=== PATIENT | female | born 1990 | race Caucasian/White ===

== ENCOUNTER 2024-01-03 08:13 | Emergency (ER) | payer MEDICAID, SELFPAY ==
--- NOTE | ~2024-01-03 | XR_ITS ---
Clinical Indication: Cough, shortness of breath PA and lateral views of the chest: Comparison: None Findings: The lungs are clear, without evidence of focal consolidation or pleural effusion. Cardiome diastinal silhouette is within normal limits. Bones and soft tissues are unremarkable. Impression: Normal chest. Reviewed, dictated and finalized at [facility]. 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
[2024-01-03 08:16] VITALS: BP 122/80; PULSE 84; RESP 20; TEMP 37.1; O2SAT 97
--- NOTE | 2024-01-03 08:17 | ED.GENADULT ---
HPI - General Adult General Chief complaint: Unspecified Stated complaint: cough Time Seen by Provider: 01/03/24 08:15 History of Present Illness HPI narrative: Patient is a 33-year-old female with no past medical history here today with flu-like symptoms over the last 5 days. She states she initially had a productive cough as well as sinus congestion. She has now progressed to a dry cough and poor appetite as well as sinus congestion and drainage. She has an associated headache. She believes that symptoms have been worsening over the last 5 days. She has taken occasional Tylenol and ibuprofen at home for the symptoms. She notes that her daughter is sick with similar symptoms, had a visit to an urgent care, was diagnosed with an ear infection and started on antibiotics. She notes some associated chest discomfort with coughing which radiates into her upper back. No associated urinary symptoms. Related Data Allergies Allergy/AdvReac Type Severity Reaction Status Date / Time Penicillins Allergy Unknown Hives Unverified 01/03/24 08:22 Review of Systems Review of Systems: All systems reviewed & are unremarkable except as noted in HPI and below Exam Narrative: GENERAL: Well-appearing, well-nourished, and in no acute distress. HEAD: Normocephalic, atraumatic. EYES: PERRLA and EOMI. ENT: Nares clear. Mucous membranes moist. Sinus congestion. NECK: Supple. CHEST: Clear to auscultation. No wheeze. no respiratory distress. HEART: Regular rate and rhythm. Normal peripheral pulses. ABDOMEN: Soft, nontender, nondistended. EXTREMITIES: Normal range of motion. No edema. SKIN: Warm, dry, no rash. NEURO: No focal deficits. Alert and oriented x3. PSYCH: Normal mood and affect. Course Course Emergency Course: Chart review performed, patient here with cough, back pain, nausea, blurred vision, sinus pressure, night sweats. Triage vitals within normal limits. No prior visits in our system. Patient seen evaluated, nontoxic appearing. She does note that she has had a cough with some chest wall discomfort with coughing. This feels similar to her prior episodes of pneumonia. She has tested positive for RSV here in the department, suspect most of her symptoms are due to RSV. Will do chest x-ray to rule out associated superimposed pneumonia. Patient agreeable. Chest x-ray negative. Patient advised symptomatic treatment with decongestants, Tylenol, ibuprofen. She should follow up closely with her primary care doctor. The results of pertinent diagnostic studies and exam findings were discussed. The patient?s provisional diagnosis and plan of care were discussed with the patient and present family. The patient and/or present family expressed understanding of the diagnosis and plan. The nurse was instructed to provide written instructions and appropriate follow-up information. The patient understands their need and responsibility to obtain additional follow-up as instructed. The risks of medications administered and prescribed were discussed with the patient and family present. Vital Signs Vital signs: Vital Signs Temperature 98.8 F 01/03/24 08:16 Pulse Rate 84 01/03/24 08:16 Respiratory Rate 20 01/03/24 08:16 Blood Pressure 122/80 01/03/24 08:16 Pulse Oximetry 97 01/03/24 08:16 Oxygen Delivery Room Air 01/03/24 08:16 Temperature 98.8 F 01/03/24 08:16 Pulse Rate 84 01/03/24 08:16 Respiratory Rate 19 01/03/24 08:24 Blood Pressure 122/80 01/03/24 08:16 Pulse Oximetry 97 01/03/24 08:24 Oxygen Delivery Room Air 01/03/24 08:16 Medical Decision Making Vital Signs Vital Signs: Vital Signs Temperature 98.8 F 01/03/24 08:16 Pulse Rate 84 01/03/24 08:16 Respiratory Rate 20 01/03/24 08:16 Blood Pressure 122/80 01/03/24 08:16 Pulse Oximetry 97 01/03/24 08:16 Oxygen Delivery Room Air 01/03/24 08:16 Temperature 98.8 F 01/03/24 08:16 Pulse Rate 84 01/03/24 08:16
[2024-01-03 08:24] VITALS: RESP 19; O2SAT 97
[2024-01-03 09:11] LABS: Influenza A QL RT-PCR Negative (Negative); Influenza B QL RT-PCR Negative (Negative); RSV RNA, RT-PCR Positive (Negative); SARS-CoV-2 RNA PCR Negative (Negative)
== END 2024-01-03 10:28 | disposition home or self-care (01) ==
PROVIDERS: Emergency Provider Student in an Organized Health Care Education/Training Program; PCP Family Medicine
DX: J21.0 Acute bronchiolitis due to respiratory syncytial virus (principal); Z20.822 Contact with and (suspected) exposure to COVID-19
CPT/HCPCS: 71046; 87637; 99283

== ENCOUNTER 2024-08-16 09:04 | Emergency (ER) | payer BC, SELFPAY ==
[2024-08-16 09:30] VITALS: BP 122/87; PULSE 79; RESP 16; TEMP 36.6; O2SAT 100
--- NOTE | 2024-08-16 09:42 | ED.URI ---
HPI - URI/Sore Throat General Chief Complaint: Upper Respiratory Infection Stated Complaint: Body Aches, Nausea Time Seen by Provider: 08/16/24 09:42 Source: patient, RN notes reviewed and old records reviewed Mode of arrival: ambulatory Limitations: no limitations History of Present Illness HPI Narrative: 34-year-old female to [facility] with complaint decreased appetite, fatigue, body aches, nausea since last night. 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 Patient wanted to rule out COVID and influenza. Patient has attempted to treat symptoms at home with Tylenol. Patient resting in exam room in no acute distress. Related Data Home Medications Medication Instructions Recorded Confirmed No Home Medications 08/16/24 08/16/24 Allergies Allergy/AdvReac Type Severity Reaction Status Date / Time Penicillins Allergy Unknown Hives Unverified 08/16/24 09:27 Review of Systems Review of Systems: All systems reviewed & are unremarkable except as noted in HPI and below Constitutional: Constitutional: Reports as per HPI, Reports body ache(s), Reports fatigue and Reports poor appetite Eyes: Eyes: Reports no additional eye complaints ENT: Reports system reviewed and no additional complaints, except as documented Cardiovascular: Cardiovascular: Reports no additional cardiovascular complaints, Denies chest pain and Denies dyspnea Respiratory: Respiratory: Reports no additional respiratory complaints, Denies cough and Denies dyspnea Gastrointestinal: Gastrointestinal: Reports as per HPI and Reports nausea Musculoskeletal: Musculoskeletal: Reports no additional musculoskeletal complaints Neurologic: Reports system reviewed and no additional complaints, except as documented Psychiatric: Psychiatric: Reports no additional psychiatric complaints PMFSH Comments At the time of my signature, I reviewed and agree with the nursing past medical, surgical, social, and family history. There is no relevant family history pertinent to the patient complaint. Exam Const: General: cooperative, healthy appearing, no acute distress, well developed, alert, tired appearing, well groomed and well nourished Nutritional Appearance: well nourished Orientation/consciousness: patient oriented x3 Limitations: no limitations HENMT: Head: normal to inspection Ears: external ears normal Face/Nose/Sinus: Normal external nose present, Normal nares present, normal facial exam, No erythema and No edema Face and sinus: normal facial exam, no erythema and no edema Mouth: Yes Normal oral and palatal mucosa present Eyes: General: appearance normal, both eyes and all related structures Neck: Neck: normal visual inspection, full ROM and no meningeal signs Chest: Chest palpation & inspection: normal inspection of the chest Resp: Effort & Inspection: normal respiratory effort and able to speak in complete sentences Auscultation: clear to auscultation bilaterally Cardio: Jugular venous distension: no JVD Rate: regular rate Rhythm: regular rhythm Back/Spine/Pelvis: Cervical Spine: cervical ROM normal Skin: General skin exam: normal color, no rashes or lesions noted and turgor normal Neuro: General: patient oriented x3, gait normal, moves all extremities and no meningeal signs Speech: normal speech Gait exam (Neuro): Normal gait present Extrem: General: normal to inspection, full ROM and capillary refill normal Psych: Appearance: grossly normal and well kempt Course Course Emergency Course: Some parts of this dictation were generated by voice recognition software and may contain typographical and/or grammatical inaccuracies. Level of Care: Express Care Visit Vital Signs Vital signs: Vital Signs Temperature 36.6 C 08/16/24 09:30 Pulse Rate 79 08/16/24 09:30 Respiratory Rate 16 08/16/24 09:30 Blood Pressure 122/87 08/16/24 09:30 Pulse Oximetry 100 08/16/24 09:30 Tem
[2024-08-16 10:23] LABS: EDCOVIDSCREEN Negative (Negative); EDINFLUASCREEN Negative (Negative); EDINFLUBSCREEN Negative (Negative)
== END 2024-08-16 10:39 | disposition home or self-care (01) ==
PROVIDERS: Emergency Provider Nurse Practitioner Family
DX: B34.9 Viral infection, unspecified (principal); Z20.822 Contact with and (suspected) exposure to COVID-19
CPT/HCPCS: 87426; 87804; 99212; G0463

== ENCOUNTER 2024-08-18 13:16 | Emergency (ER) | payer BC, SELFPAY ==
--- NOTE | ~2024-08-18 | XR_ITS ---
XR chest 2V Ordering provider: Christiana Smith APRN History: 34 years Female with . cough bodyaches . Comparison: January 03, 2024 FINDINGS: MEDIASTINUM: The cardiac silhouette is not enlarged. LUNGS: No effusions or pneumothorax. Opacification in the right lung base is seen suggestive of pneum onia. Follow-up advised. OTHER: No free air under the diaphragm. IMPRESSION: Right lower lobe pneumonia. Reviewed, dictated and finalized at location A. IMPRESSION: Right lower lobe pneumonia.
--- NOTE | 2024-08-18 13:22 | ED.URI ---
HPI - URI/Sore Throat General Chief Complaint: Upper Respiratory Infection Stated Complaint: Fever Time Seen by Provider: 08/18/24 13:38 Source: patient, RN notes reviewed and old records reviewed Mode of arrival: ambulatory Limitations: no limitations History of Present Illness HPI Narrative: 34-year-old female presents to the [facility] with concerns for a fever. Was evaluated on the , tested for flu and COVID which were negative. Symptoms started on the 17. Patient reports feeling fevers, no measurement taken. Reports generalized fatigue, body aches and a cough. Denies shortness of breath. Onset (ago): day(s) (3) Related Data Allergies Allergy/AdvReac Type Severity Reaction Status Date / Time Penicillins Allergy Unknown Hives Verified 08/18/24 13:36 Review of Systems Review of Systems: All systems reviewed & are unremarkable except as noted in HPI and below Constitutional: Constitutional: Reports as per HPI, Reports body ache(s), Reports chills, Reports fatigue and Reports fever(s) ENT: Reports system reviewed and no additional complaints, except as documented Cardiovascular: Cardiovascular: Reports no additional cardiovascular complaints, Denies chest pain and Denies dyspnea Respiratory: Respiratory: Reports as per HPI, Denies chest congestion, Reports cough and Denies dyspnea Gastrointestinal: Gastrointestinal: Reports no additional gastrointestinal complaints, Denies abdominal pain, Denies nausea and Denies vomiting Musculoskeletal: Musculoskeletal: Reports no additional musculoskeletal complaints Integumentary/Breasts: Skin/Breast: Reports system reviewed and no additional complaints, except as docu PMFSH Comments At the time of my signature, I reviewed and agree with the nursing past medical, surgical, social, and family history. There is no relevant family history pertinent to the patient complaint. Exam Const: General: cooperative, no acute distress, well developed, alert, uncomfortable and well nourished Nutritional Appearance: well nourished Orientation/consciousness: patient oriented x3 Limitations: no limitations HENMT: Head: normal to inspection Ears: hearing grossly normal bilaterally, external ears normal, TM's normal bilaterally, EAC's normal, mastoids normal and no periauricular adenopathy Face/Nose/Sinus: Normal external nose present, normal facial exam and face symmetric Face and sinus: normal facial exam and face symmetric Mouth: Yes Normal oral and palatal mucosa present, Yes lip normal and Yes tongue normal Throat: posterior oropharynx normal, tonsils normal, uvula midline and no uvular edema Eyes: General: appearance normal, both eyes and all related structures Alignment and Position: alignment normal Periorbital: periorbital findings normal Neck: Neck: normal visual inspection, full ROM, no lymphadenopathy and no meningeal signs Chest: Chest palpation & inspection: normal inspection of the chest Resp: Effort & Inspection: normal respiratory effort and able to speak in complete sentences Auscultation: clear to auscultation bilaterally, no crackles, no rales, no rhonchi, no wheezes and diminished lung sounds on the right in the lower lung kidd Cardio: Rate: regular rate Skin: General skin exam: normal color and no rashes or lesions noted Lesions: no lesions Rashes: no rashes Wounds: no wounds Neuro: General: patient oriented x3, gait normal, tone normal, moves all extremities and no meningeal signs Cognition (Neuro): normal cognition Speech: normal speech Gait exam (Neuro): Normal gait present Extrem: General: normal to inspection, full ROM, capillary refill normal and normal gait Psych: Appearance: grossly normal and well kempt Mental Status: mental status grossly normal Speech and movement: Normal speech and movement present and Clear speech present Affect: normal affect Attitude: cooperative Course Course Level of Care: Express Care Visit Vital Signs Vital si
[2024-08-18 13:40] VITALS: BP 136/79; PULSE 99; RESP 16; TEMP 37.2; O2SAT 96
[2024-08-18 14:17] LABS: EDSTREPNEGPOS1 Negative (Negative)
[2024-08-18 14:23] LABS: EDCOVIDSCREEN Negative (Negative); EDINFLUASCREEN Negative (Negative); EDINFLUBSCREEN Negative (Negative)
== END 2024-08-18 14:30 | disposition home or self-care (01) ==
PROVIDERS: Emergency Provider Nurse Practitioner
DX: J18.1 Lobar pneumonia, unspecified organism (principal); Z20.822 Contact with and (suspected) exposure to COVID-19
CPT/HCPCS: 71046; 87081; 87426; 87804; 87880; 99213; G0463

== ENCOUNTER 2024-08-23 11:33 | Emergency (ER) | payer BC, SELFPAY ==
[2024-08-23 11:39] VITALS: BP 120/67; PULSE 58; RESP 16; TEMP 36.3; O2SAT 100
--- NOTE | 2024-08-23 11:41 | PC.NURSE ---
Patient ambulated to room with steady gate
--- NOTE | 2024-08-23 12:14 | ED_ITS ---
HPI - URI/Sore Throat General Chief Complaint: Upper Respiratory Infection Stated Complaint: diagnosed pneumonia, worsening symptoms Time Seen by Provider: 08/23/24 11:46 Source: patient Mode of arrival: ambulatory Limitations: no limitations History of Present Illness HPI Narrative: This is a 34-year-old female who presents to the ED for chief complaint of dizziness and feeling unwell over the past couple of days. Reports being diagnosed with pneumonia 5 days ago and has been on doxycycline, taking as prescribed. Over the past 2 days she has tried return to work and is having dizziness while at work. 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 She also reports having a headache and some migraine symptoms. Related Data Allergies Allergy/AdvReac Type Severity Reaction Status Date / Time Penicillins Allergy Unknown Hives Verified 08/23/24 11:35 Review of Systems Review of Systems: All systems as dictated in HPI Exam Narrative: GENERAL: Well-appearing, well-nourished, and in no acute distress. HEAD: Normocephalic, atraumatic. EYES: PERRLA and EOMI. ENT: Nares clear, no rhinorrhea or epistaxis. Mucous membranes moist. Oropharynx without tonsillar hypertrophy exudate or other lesions. NECK: Supple. No adenopathy or masses. CHEST: No respiratory distress. Clear to auscultation. No wheezes rales or rhonchi HEART: Regular rate and rhythm. No murmur heard. Normal peripheral pulses. ABDOMEN: Soft, nontender, nondistended, normal active bowel sounds. MSK: Normal range of motion. No edema. SKIN: Warm, dry, no rash. NEURO: Alert and oriented x4. No focal deficits. PSYCH: Normal mood and affect. Course Vital Signs Vital signs: Vital Signs Temperature 97.4 F L 08/23/24 11:39 Pulse Rate 58 L 08/23/24 11:39 Respiratory Rate 16 08/23/24 11:39 Blood Pressure 120/67 08/23/24 11:39 Pulse Oximetry 100 08/23/24 11:39 Oxygen Delivery Room Air 08/23/24 11:39 Temperature 97.4 F L 08/23/24 11:39 Pulse Rate 58 L 08/23/24 11:39 Respiratory Rate 16 08/23/24 11:39 Blood Pressure 120/67 08/23/24 11:39 Pulse Oximetry 100 08/23/24 11:39 Oxygen Delivery Room Air 08/23/24 11:39 MDM - URI/Sore Throat MDM Narrative Medical decision making narrative: This is a 34 yo female who presents to the ED for chief complaint of he adache, migraine and feeling unwell after being diagnosed with pneumonia. Vital Are normal. Exam Is unremarkable overall. Discussed course with the patient we have agreed to avoid labs or imaging today. She will be given fluids and headache cocktail. She feels much improved on re-evaluation. She is no longer feeling dizzy or lightheaded. Presentation consistent with dehydration due to recent illness. Encouraged to continue taking her antibiotics as prescribed. Patient will be discharged in stable condition. Supportive measures discussed and return precautions given. Patient is understanding and agreeable with plan for discharge with PCP follow-up. Discharge Plan Discharge Clinical Impression: Headache Patient Disposition: Home, Self-Care Condition: Stable Instructions: Antibiotic Form Additional Instructions: Exam today overall reassuring. Please continue taking your medications for pneumonia. Stay very well hydrated at home. Use Tylenol and ibuprofen regularly for pain and fevers. If you have any new or worsening symptoms please return to the ER for further evaluation. Prescriptions: No Action doxycycline monohydrate 100 mg tablet 100 mg PO BID Qty: 20 0RF Follow-up/Referrals: UNKNOWN,DOCTOR [Primary Care Provider] - Stand Alone Forms: Work/School Release IP Time of Disposition: 13:44
[2024-08-23] MEDS: SODIUM CHLORIDE 0.9% IV 1,000 ML 999 ML IV CONT (12:45)
[2024-08-23] MEDS: KETOROLAC 15 MG/ML VIAL (*BKC) IV PUSH (12:46)
[2024-08-23] MEDS: PROCHLORPERAZINE EDISYLATE 10 MG/2 ML VIAL IV PUSH (12:49)
[2024-08-23] MEDS: diphenhydrAMINE HCl INJ 50 MG/ML VIAL 25 MG IV PUSH (12:51)
== END 2024-08-23 14:05 | disposition home or self-care (01) ==
PROVIDERS: Emergency Provider Physician Assistant
DX: R51.9 Headache, unspecified (principal)
CPT/HCPCS: 96361; 96374; 96375; 99284; J0780; J1200; J1885; J7030